=== PATIENT | male | born 1975 | race Caucasian/White ===

== ENCOUNTER 2016-06-13 08:49 | Emergency (ER) | payer OTHER ==
[2016-06-13] MEDS ORDERED: ALBUTEROL 90 MCG/ACT 8GM HFA INHALER As Ordered ONE (09:56)
--- NOTE | 2016-06-13 10:40 | EDDOCDS ---
Physician Documentation [facility] Name: Angeli Dickey Age: 40 yrs Sex: Male : 1975 Arrival Date: 06/13/2016 Time: 08:49 Bed PR Private MD: Disposition: 06/13/16 10:31 Discharged to Home/Self Care. Impression: Acute upper respiratory infection, unspecified, Emphysema, unspecified. - Condition is Stable. - Discharge Instructions: Chronic Obstructive Pulmonary Disease, Upper Respiratory Infection, Adult. - Prescriptions for Ibuprofen 600 mg Oral Tablet - take 1 tablet by ORAL route every 6 hours As needed take with food; 30 tablet. Doxycycline Monohydrate 100 mg Oral Tablet - take 1 tablet by ORAL route every 12 hours for 10 days; 20 tablet. benzonatate 200 mg Oral Capsule - take 1 capsule by ORAL route 3 times per day As needed; 30 capsule. Advair Diskus 250- 50 mcg/dose - inhale 1 blisters by INHALATION route 2 times per day; 1 unit. Fluticasone 50 mcg/actuation Nasal [place], Suspension - inhale 2 spray by INTRANASAL route once daily; 1 bottle. - Medication Reconciliation, Local Pharmacy Hours form. - [facility]; When: Call to arrange an appointment; Reason: Recheck today's complaints, To establish care. Follow up: Emergency Department; When: As needed; Reason: Fever > 102F, Trouble breathing, Worsening of conditions. - Problem is new. - Symptoms have improved. Historical: - Allergies: PENICILLINS (Hives); - Home Meds: 1. benzonatate 100 mg oral cap 1 cap 3 times per day - PMHx: Emphysema; Sleep Apnea w/o CPAP; - PSHx: ankle right ORIF; - Social history: Smoking status: Patient uses tobacco products, light tobacco smoker. No barriers to communication noted, The patient speaks fluent Divehi, Speaks appropriately for age. - Family history: Not pertinent. - : The pt / caregiver states he / she is not on anticoagulants. Home medication list is obtained from the patient. - Exposure Risk Screening:: None identified. Vital Signs: 06/13 09:11 BP 151 / 82; Pulse 84; Resp 16; Temp 99.1(TE); Pulse Ox 94% on R/A; Weight 117.93 kg / mlb1 259.99 lbs (R); Height 5 ft. 11 in. (180.34 cm) (R); Pain 9/10; 09:11 Body Mass Index 36.26 (117.93 kg, 180.34 cm) mlb1 MDM: 09:24 Financial registration complete. lg 09:36 Ventolin Inhaler 2 puffs Inhalation once ordered. ar2 09:36 Strep Screen, Nursing ordered. ar2 09:36 Obtain sample by nasopharyngeal swab ordered. ar2 09:36 -Influenza A&B Rapid Antigen - Nose Ordered. EDMS 09:56 GATS (NEGATIVE STREP SCREEN) Ordered. EDMS 10:21 -Influenza A&B Rapid Antigen - Nose Reviewed. ar2 10:28 [facility] Payment Agreement was scanned into [employer] and attached to record. lg Administered Medications: 10:04 Drug: Ventolin 2 puffs [Ventolin HFA 90 mcg/actuation aerosol inhaler (2 puffs)] Route: mlb1 Inhalation; Signatures: Dispatcher [employer] EDMS Joni Chaudhari, Reg Reg lg García Hui RN RN mlb1 Alexis Seals, ROSA PA-C ar2 The chart was reviewed and I authenticate all verbal orders and agree with the evaluation and treatment provided.Attachments: 10:28 [facility] Payment Agreement lg MTDD
--- NOTE | 2016-06-13 10:40 | EDDOCDS ---
Nurse's Notes [facility] Name: Angeli Dickey Age: 40 yrs Sex: Male : 1975 Arrival Date: 06/13/2016 Time: 08:49 Bed PR Private MD: Diagnosis: Acute upper respiratory infection, unspecified;Emphysema, unspecified Presentation: 06/13 09:09 Presenting complaint: Patient states: Headache body aches and cough began last night. mlb1 Adult Sepsis Screening: The patient does not have new or worsening altered mentation. Patient's respiratory rate is less than 22. Systolic blood pressure is greater than 100. Patient has a qSOFA score of 0- Negative Sepsis Screen. Suicide/Homicide risk assessment- the patient denies having any suicidal and/or homicidal ideations and does not present with any other emotional, behavioral or mental health complaints. Status: Patient is not a client services analyst or dependent. Transition of care: patient was not received from another setting of care. 09:09 Acuity: EMMY Level 4 mlb1 09:09 Method Of Arrival: Walkin/Carried/Asstd mlb1 Triage Assessment: 09:10 General: Appears in no apparent distress, Behavior is appropriate for age, cooperative. mlb1 Pain: Location: "all over" Pain currently is 9 out of 10 on a pain scale. HIV screening NA for this visit Offered previously. Respiratory: Reports cough that is productive. Historical: - Allergies: PENICILLINS (Hives); - Home Meds: 1. benzonatate 100 mg oral cap 1 cap 3 times per day - PMHx: Emphysema; Sleep Apnea w/o CPAP; - PSHx: ankle right ORIF; - Social history: Smoking status: Patient uses tobacco products, light tobacco smoker. No barriers to communication noted, The patient speaks fluent Czech, Speaks appropriately for age. - Family history: Not pertinent. - : The pt / caregiver states he / she is not on anticoagulants. Home medication list is obtained from the patient. - Exposure Risk Screening:: None identified. Screenin:37 Screening information is obtained from the patient. Fall risk: No risks identified. mlb1 Assistance ADL's: requires no assistance with activities of daily living. Abuse/DV Screen: The patient / caregiver reports he/she is: not in a situation that causes fear, pain or injury. Nutritional screening: No deficits noted. Advance Directives: Currently, there is no health care proxy. home support is adequate. Assessment: 10:37 General: Appears in no apparent distress, comfortable, Behavior is appropriate for age, mlb1 cooperative. Pain: Location: "all over" Pain currently is 5 out of 10 on a pain scale. Neurological: No deficits noted. Respiratory: Airway is patent Respiratory effort is even, unlabored, Breath sounds are clear bilaterally. Reports cough that is productive. Derm: Skin is pink, warm & dry. normal. Vital Signs: 09:11 BP 151 / 82; Pulse 84; Resp 16; Temp 99.1(TE); Pulse Ox 94% on R/A; Weight 117.93 kg mlb1 (R); Height 5 ft. 11 in. (180.34 cm) (R); Pain 9/10; 09:11 Body Mass Index 36.26 (117.93 kg, 180.34 cm) mlb1 Vitals: 09:11 Log In Time: June 13, 2016 at 08:48. mlb1 09:55 Strep Screen is obtained and tested: Negative, [facility]. ED Course: 08:50 Patient visited by Larisa Jacobs. mm15 08:50 Patient moved to Waiting mm15 09:08 Patient visited by García Hui RN. mlb1 09:09 Triage Initiated mlb1 09:11 Patient visited by García Hui RN. mlb1 09:11 Patient moved to Triage 1 mlb1 09:15 Alexis Seals [facility]-C [facility]. ar2 09:16 Elijah Price MD is Attending Physician. ar2 09:16 Patient visited by Alexis Seals PA-C. ar2 09:41 Patient moved to PR2 / mlb1 09:54 -Influenza A&B Rapid Antigen - Nose Sent. mlb1 10:17 Patient visited by Shari Lang PCA. ct3 10:28 [facility] [place] Agreement was scanned into [employer] and attached to record. lg 10:29 [facility] is Referral Physician. ar2 10:38 No IV's were initiated during this patient's visit. No procedures done that require mlb1 assistance. 10:39 The patient / caregiver is instructed regarding the plan of care and ED course. mlb1 Administered Medications: 10:04 Drug: Ventolin 2 puffs [Ventolin HFA 90 mcg/actuation aerosol inhaler (2 puffs)] Route: mlb1 Inhalation; Order Results: Lab Order: -Influenza A&B Rapid Antigen - Nose; SPEC'M 06/13/16 09:47 Test: INFLUENZA A RAPID SCR by ICA; Value: INFLUENZA A RESULTS NEGATIVE; Status: F Test: INFLUENZA A RAPID SCR by ICA; Value: Comments:; Status: F Test: INFLUENZA B RAPID SCR by ICA; Value: INFLUENZA B RESULTS NEGATIVE; Status: F Test Note: ; The Influenza test is a direct rapid immunoassay for the qualitative detection of Influenza viral antigen. Cell culture (Viral Culture) testing should be considered to confirm NEGATIVE results and to assist in detecting other viruses that can provide similar clinical symptoms. Please contact the lab within 24 hours ([phone]) if confirmatory testing is desired. Outcome: 10:31 Discharge ordered by Provider. ar2 10:38 Discharge Assessment: Patient awake, alert and oriented x 3. No cognitive and/or mlb1 functional deficits noted. Patient verbalized understanding of disposition instructions. patient administered narcotics - no. The following High Risk Discharge criteria are identified: None. Condition: good. Discharge instructions given to patient, Instructed on discharge instructions, follow up and referral plans. medication usage, Demonstrated understanding of instructions, medications, Pt was receptive of discharge instructions/ teaching. Prescriptions given X 5. No special radiology studies were completed. Property sent home with patient. 10:39 Patient left the ED. mlb1 Signatures: Joni Chaudhari, Trent Newman lg García Hui RN RN mlb1 Alexis Seals PA-C PA-C ar2 Shari Lang, NIMA ASSOCIATE CHEMIST ct3 Larisa Jacobs mm15 MTDD
--- NOTE | 2016-06-15 11:39 | EDDOCDS ---
Physician Documentation [facility] Name: Angeli Dickey Age: 40 yrs Sex: Male : 1975 Arrival Date: 06/13/2016 Time: 08:49 Bed PR Private MD: Disposition: 06/13/16 10:31 Discharged to Home/Self Care. Impression: Acute upper respiratory infection, unspecified, Emphysema, unspecified. - Condition is Stable. - Discharge Instructions: Chronic Obstructive Pulmonary Disease, Upper Respiratory Infection, Adult. - Prescriptions for Ibuprofen 600 mg Oral Tablet - take 1 tablet by ORAL route every 6 hours As needed take with food; 30 tablet. Doxycycline Monohydrate 100 mg Oral Tablet - take 1 tablet by ORAL route every 12 hours for 10 days; 20 tablet. benzonatate 200 mg Oral Capsule - take 1 capsule by ORAL route 3 times per day As needed; 30 capsule. Advair Diskus 250- 50 mcg/dose - inhale 1 blisters by INHALATION route 2 times per day; 1 unit. Fluticasone 50 mcg/actuation Nasal [place], Suspension - inhale 2 spray by INTRANASAL route once daily; 1 bottle. - Medication Reconciliation, Local Pharmacy Hours form. - Follow up: [facility]; When: Call to arrange an appointment; Reason: Recheck today's complaints, To establish care. Follow up: Emergency Department; When: As needed; Reason: Fever > 102F, Trouble breathing, Worsening of conditions. - Problem is new. - Symptoms have improved. Historical: - Allergies: PENICILLINS (Hives); - Home Meds: 1. benzonatate 100 mg oral cap 1 cap 3 times per day - PMHx: Emphysema; Sleep Apnea w/o CPAP; - PSHx: ankle right ORIF; - Social history: Smoking status: Patient uses tobacco products, light tobacco smoker. No barriers to communication noted, The patient speaks fluent Greek, Speaks appropriately for age. - Family history: Not pertinent. - : The pt / caregiver states he / she is not on anticoagulants. Home medication list is obtained from the patient. - Exposure Risk Screening:: None identified. Vital Signs: 06/13 09:11 BP 151 / 82; Pulse 84; Resp 16; Temp 99.1(TE); Pulse Ox 94% on R/A; Weight 117.93 kg / mlb1 259.99 lbs (R); Height 5 ft. 11 in. (180.34 cm) (R); Pain 01/13; 09:11 Body Mass Index 36.26 (117.93 kg, 180.34 cm) mlb1 MDM: 09:24 Financial registration complete. lg 09:36 Ventolin Inhaler 2 puffs Inhalation once ordered. ar2 09:36 Strep Screen, Nursing ordered. ar2 09:36 Obtain sample by nasopharyngeal swab ordered. ar2 09:36 -Influenza A&B Rapid Antigen - Nose Ordered. EDMS 09:56 GATS (NEGATIVE STREP SCREEN) Ordered. EDMS 10:21 -Influenza A&B Rapid Antigen - Nose Reviewed. ar2 10:28 [facility] Payment Agreement was scanned into [employer] and attached to record. lg 06/14 11:13 T-Sheet-- Draft Copy was scanned into [employer] and attached to record. gb Administered Medications: 06/13 10:04 Drug: Ventolin 2 puffs [Ventolin HFA 90 mcg/actuation aerosol inhaler (2 puffs)] Route: mlb1 Inhalation; Signatures: Dispatcher [employer] EDDE Sofya Garcia, Reg Reg gb Joni Chaudhari, Reg Reg lg García Hui RN RN mlb1 Alexis Seals, ROSA PASilvia ar2 The chart was reviewed and I authenticate all verbal orders and agree with the evaluation and treatment provided.Attachments: 10:28 [facility] Payment Agreement 06/14 11:13 T-Sheet-- Draft Copy gb Chart Complete MTDD
--- NOTE | 2016-06-15 11:39 | EDDOCDS ---
Nurse's Notes [facility] Name: Angeli Dickey Age: 40 yrs Sex: Male : 1975 Arrival Date: 06/13/2016 Time: 08:49 Bed PR Private MD: Diagnosis: Acute upper respiratory infection, unspecified;Emphysema, unspecified Presentation: 06/13 09:09 Presenting complaint: Patient states: Headache body aches and cough began last night. mlb1 Adult Sepsis Screening: The patient does not have new or worsening altered mentation. Patient's respiratory rate is less than 22. Systolic blood pressure is greater than 100. Patient has a qSOFA score of 0- Negative Sepsis Screen. Suicide/Homicide risk assessment- the patient denies having any suicidal and/or homicidal ideations and does not present with any other emotional, behavioral or mental health complaints. 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 Transition of care: patient was not received from another setting of care. 09:09 Acuity: EMMY Level 4 mlb1 09:09 Method Of Arrival: Walkin/Carried/Asstd mlb1 Triage Assessment: 09:10 General: Appears in no apparent distress, Behavior is appropriate for age, cooperative. mlb1 Pain: Location: "all over" Pain currently is 9 out of 10 on a pain scale. HIV screening NA for this visit Offered previously. Respiratory: Reports cough that is productive. Historical: - Allergies: PENICILLINS (Hives); - Home Meds: 1. benzonatate 100 mg oral cap 1 cap 3 times per day - PMHx: Emphysema; Sleep Apnea w/o CPAP; - PSHx: ankle right ORIF; - Social history: Smoking status: Patient uses tobacco products, light tobacco smoker. No barriers to communication noted, The patient speaks fluent Korean, Speaks appropriately for age. - Family history: Not pertinent. - : The pt / caregiver states he / she is not on anticoagulants. Home medication list is obtained from the patient. - Exposure Risk Screening:: None identified. Screenin:37 Screening information is obtained from the patient. Fall risk: No risks identified. mlb1 Assistance ADL's: requires no assistance with activities of daily living. Abuse/DV Screen: The patient / caregiver reports he/she is: not in a situation that causes fear, pain or injury. Nutritional screening: No deficits noted. Advance Directives: Currently, there is no health care proxy. home support is adequate. Assessment: 10:37 General: Appears in no apparent distress, comfortable, Behavior is appropriate for age, mlb1 cooperative. Pain: Location: "all over" Pain currently is 5 out of 10 on a pain scale. Neurological: No deficits noted. Respiratory: Airway is patent Respiratory effort is even, unlabored, Breath sounds are clear bilaterally. Reports cough that is productive. Derm: Skin is pink, warm & dry. normal. Vital Signs: 09:11 BP 151 / 82; Pulse 84; Resp 16; Temp 99.1(TE); Pulse Ox 94% on R/A; Weight 117.93 kg mlb1 (R); Height 5 ft. 11 in. (180.34 cm) (R); Pain 9/10; 09:11 Body Mass Index 36.26 (117.93 kg, 180.34 cm) mlb1 Vitals: 09:11 Log In Time: June 13, 2016 at 08:48. mlb1 09:55 Strep Screen is obtained and tested: Negative, [facility]. ED Course: 08:50 Patient visited by Larisa Jacobs. mm15 08:50 Patient moved to Waiting mm15 09:08 Patient visited by García Hui RN. mlb1 09:09 Triage Initiated mlb1 09:11 Patient visited by García Hui RN. mlb1 09:11 Patient moved to Triage 1 mlb1 09:15 Alexis Seals PA-C is [facility]. ar2 09:16 Elijah Price MD is Attending Physician. ar2 09:16 Patient visited by Alexis Seals PA-C. ar2 09:41 Patient moved to PR2 / mlb1 09:54 -Influenza A&B Rapid Antigen - Nose Sent. mlb1 10:17 Patient visited by Shari Lang PCA. ct3 10:28 [facility] Payment Agreement was scanned into [employer] and attached to record. lg 10:29 [facility] is Referral Physician. ar2 10:38 No IV's were initiated during this patient's visit. No procedures done that require mlb1 assistance. 10:39 The patient / caregiver is instructed regarding the plan of care and ED course. mlb1 02/ 11:13 T-Sheet-- Draft Copy was scanned into [employer] and attached to record. gb Administered Medications: 06/13 10:04 Drug: Ventolin 2 puffs [Ventolin HFA 90 mcg/actuation aerosol inhaler (2 puffs)] Route: mlb1 Inhalation; Order Results: Lab Order: -Influenza A&B Rapid Antigen - Nose; SPEC'M 06/13/16 09:47 Test: INFLUENZA A RAPID SCR by ICA; Value: INFLUENZA A RESULTS NEGATIVE; Status: F Test: INFLUENZA A RAPID SCR by ICA; Value: Comments:; Status: F Test: INFLUENZA B RAPID SCR by ICA; Value: INFLUENZA B RESULTS NEGATIVE; Status: F Test Note: ; The Influenza test is a direct rapid immunoassay for the qualitative detection of Influenza viral antigen. Cell culture (Viral Culture) testing should be considered to confirm NEGATIVE results and to assist in detecting other viruses that can provide similar clinical symptoms. Please contact the lab within 24 hours ([phone]) if confirmatory testing is desired. Lab Order: GATS (NEGATIVE STREP SCREEN); SPEC'M 06/13/16 09:47 Test: GATS CULTURE (NEG STREP SCR); Value: GATS RESULT NEGATIVE FOR STREP PYOGENES (GROUP A); Status: F Test: GATS CULTURE (NEG STREP SCR); Value: <EXTERNAL COMMENT eCWMed> FULL REPORT IN LAB NOTES (eCW and Medent).; Status: F Outcome: 10:31 Discharge ordered by Provider. ar2 10:38 Discharge Assessment: Patient awake, alert and oriented x 3. No cognitive and/or mlb1 functional deficits noted. Patient verbalized understanding of disposition instructions. patient administered narcotics - no. The following High Risk Discharge criteria are identified: None. Condition: good. Discharge instructions given to patient, Instructed on discharge instructions, follow up and referral plans. medication usage, Demonstrated understanding of instructions, medications, Pt was receptive of discharge instructions/ teaching. Prescriptions given X 5. No special radiology studies were completed. Property sent home with patient. 10:39 Patient left the ED. mlb1 Signatures: Sofya Garcia, Reg Reg gb Joni Chaudhari, Reg Reg lg García Hui RN RN mlb1 Alexis Seals, PA-C PA-C ar2 Shari Lang, DAIRY GRAZER DAIRY GRAZER ct3 Jacobs, Marlynn mm15 Chart Complete MTDD
--- NOTE | 2016-06-15 11:39 | EDDOCDS ---
Physician Documentation [facility] Name: Angeli Dickey Age: 40 yrs Sex: Male : 1975 Arrival Date: 06/13/2016 Time: 08:49 Bed PR Private MD: Disposition: 06/13/16 10:31 Discharged to Home/Self Care. Impression: Acute upper respiratory infection, unspecified, Emphysema, unspecified. - Condition is Stable. - Discharge Instructions: Chronic Obstructive Pulmonary Disease, Upper Respiratory Infection, Adult. - Prescriptions for Ibuprofen 600 mg Oral Tablet - take 1 tablet by ORAL route every 6 hours As needed take with food; 30 tablet. Doxycycline Monohydrate 100 mg Oral Tablet - take 1 tablet by ORAL route every 12 hours for 10 days; 20 tablet. benzonatate 200 mg Oral Capsule - take 1 capsule by ORAL route 3 times per day As needed; 30 capsule. Advair Diskus 250- 50 mcg/dose - inhale 1 blisters by INHALATION route 2 times per day; 1 unit. Fluticasone 50 mcg/actuation Nasal [place], Suspension - inhale 2 spray by INTRANASAL route once daily; 1 bottle. - Medication Reconciliation, Local Pharmacy Hours form. - Follow up: [facility]; When: Call to arrange an appointment; Reason: Recheck today's complaints, To establish care. Follow up: Emergency Department; When: As needed; Reason: Fever > 102F, Trouble breathing, Worsening of conditions. - Problem is new. - Symptoms have improved. Historical: - Allergies: PENICILLINS (Hives); - Home Meds: 1. benzonatate 100 mg oral cap 1 cap 3 times per day - PMHx: Emphysema; Sleep Apnea w/o CPAP; - PSHx: ankle right ORIF; - Social history: Smoking status: Patient uses tobacco products, light tobacco smoker. No barriers to communication noted, The patient speaks fluent Albanian, Speaks appropriately for age. - Family history: Not pertinent. - : The pt / caregiver states he / she is not on anticoagulants. Home medication list is obtained from the patient. - Exposure Risk Screening:: None identified. Vital Signs: 06/13 09:11 BP 151 / 82; Pulse 84; Resp 16; Temp 99.1(TE); Pulse Ox 94% on R/A; Weight 117.93 kg / mlb1 259.99 lbs (R); Height 5 ft. 11 in. (180.34 cm) (R); Pain 01/13; 09:11 Body Mass Index 36.26 (117.93 kg, 180.34 cm) mlb1 MDM: 09:24 Financial registration complete. lg 09:36 Ventolin Inhaler 2 puffs Inhalation once ordered. ar2 09:36 Strep Screen, Nursing ordered. ar2 09:36 Obtain sample by nasopharyngeal swab ordered. ar2 09:36 -Influenza A&B Rapid Antigen - Nose Ordered. EDMS 09:56 GATS (NEGATIVE STREP SCREEN) Ordered. EDMS 10:21 -Influenza A&B Rapid Antigen - Nose Reviewed. ar2 10:28 [facility] Payment Agreement was scanned into [employer] and attached to record. lg 06/14 11:13 T-Sheet-- Draft Copy was scanned into [employer] and attached to record. gb Administered Medications: 06/13 10:04 Drug: Ventolin 2 puffs [Ventolin HFA 90 mcg/actuation aerosol inhaler (2 puffs)] Route: mlb1 Inhalation; Signatures: Dispatcher [employer] EDAZ Sofya Garcia, Reg Reg gb Joni Chaudhari, Reg Reg lg García Hui RN RN mlb1 Alexis Seals, ROSA PASilvia ar2 The chart was reviewed and I authenticate all verbal orders and agree with the evaluation and treatment provided.Attachments: 10:28 [facility] Payment Agreement 06/14 11:13 T-Sheet-- Draft Copy gb Chart Complete MTDD
== END 2016-06-13 10:39 | disposition home or self-care (01) ==
LOC: M ED 08:49
DX: J44.9 Chronic obstructive pulmonary disease, unspecified (principal); J06.9 Acute upper respiratory infection, unspecified; G47.30 Sleep apnea, unspecified; Z79.899 Other long term (current) drug therapy; Z88.0 Allergy status to penicillin; F17.210 Nicotine dependence, cigarettes, uncomplicated

== ENCOUNTER 2016-07-27 01:04 | Emergency (ER) | payer OTHER ==
[~2016-07-27] VITALS: Ht 175.3 cm; Wt 115.7 kg
[2016-07-27 01:38] VITALS: BP 126/60
[2016-07-27] MEDS ORDERED: PERC5TAB6 PO (09:03)
== END 2016-07-27 05:42 | disposition left against medical advice (07) ==
LOC: M ED 03:28
DX: H57.9 Unspecified disorder of eye and adnexa (principal); Z53.29 Procedure and treatment not carried out because of patient's decision for other reasons

== ENCOUNTER 2016-07-27 05:43 | Emergency (ER) | payer OTHER ==
[~2016-07-27] VITALS: Ht 175.3 cm; Wt 115.7 kg
[2016-07-27] MEDS ORDERED: PROPARACAINE 0.5% OPHTH SOL 15ML OU ONE (06:15)
[2016-07-27] MEDS ORDERED: PERCOCET 5MG/325MG TAB PO ONE (09:00)
[2016-07-27] MEDS ORDERED: GATIFLOXACIN 0.5% 2.5ML OPHTH SOL OU ONE (09:00)
[2016-07-27] MEDS ORDERED: PERC5TAB6 PO (09:03)
[2016-07-27 09:11] VITALS: BP 136/70
== END 2016-07-27 09:12 | disposition home or self-care (01) ==
LOC: EDBD 05:43 → M ED 06:19
DX: T15.01XA Foreign body in cornea, right eye, initial encounter (principal); T15.02XA Foreign body in cornea, left eye, initial encounter; Y92.89 Other specified places as the place of occurrence of the external cause; Z88.0 Allergy status to penicillin

== ENCOUNTER 2017-07-10 22:43 | Emergency (ER) | payer OTHER, SELFPAY | END 2017-07-11 01:16 | disposition left against medical advice (07) | LOC: M ED 22:43 | DX: M54.9 Dorsalgia, unspecified (principal); Z53.21 Procedure and treatment not carried out due to patient leaving prior to being seen by health care provider ==

== ENCOUNTER 2017-09-05 02:52 | Emergency (ER) | payer OTHER ==
[2017-09-05] MEDS: PERCOCET 5MG/325MG TAB PO (06:13)
== END 2017-09-05 06:24 | disposition home or self-care (01) ==
LOC: M ED 02:52
DX: M25.511 Pain in right shoulder (principal); M25.512 Pain in left shoulder; G89.29 Other chronic pain; K21.9 Gastro-esophageal reflux disease without esophagitis; F33.9 Major depressive disorder, recurrent, unspecified; Z98.890 Other specified postprocedural states; Z88.0 Allergy status to penicillin; Z79.899 Other long term (current) drug therapy
CPT/HCPCS: 99283

== ENCOUNTER 2017-09-10 11:40 | Outpatient (RCR) | payer OTHER | END 2017-10-03 | LOC: M PT 11:40 | DX: Z47.89 Encounter for other orthopedic aftercare (principal); S43.002D Unspecified subluxation of left shoulder joint, subsequent encounter | CPT/HCPCS: 97010 ==

== ENCOUNTER 2017-09-14 22:48 | Emergency (ER) | payer OTHER ==
[2017-09-15] MEDS: diazePAM 5 MG TAB PO (01:26)
[2017-09-15] MEDS: PERCOCET 5MG/325MG TAB PO (01:26)
[2017-09-15] MEDS: OXYCODONE/APAP 5MG/325MG(BULK FOR ED) 1 TABLET PO (02:12)
== END 2017-09-15 02:18 | disposition home or self-care (01) ==
LOC: M ED 22:48
DX: M25.512 Pain in left shoulder (principal); J44.9 Chronic obstructive pulmonary disease, unspecified; K21.9 Gastro-esophageal reflux disease without esophagitis; F17.200 Nicotine dependence, unspecified, uncomplicated; Z79.899 Other long term (current) drug therapy; Z88.0 Allergy status to penicillin
CPT/HCPCS: 99283

== ENCOUNTER 2017-10-30 10:35 | Day surgery (SDC) | payer OTHER ==
[2017-10-30] MEDS ORDERED: ROPIvacaine 0.5% 30 ML INJECTION (J2795 PER 1MG) (10:36)
[2017-10-30] MEDS ORDERED: dexameTHASONE 10 MG/1 ML VIAL PRES.FREE (J1100) (10:36)
[2017-10-30] MEDS ORDERED: EPINEPHrine INJ 1 MG/ML 1ML AMP (10:36)
[2017-10-30] MEDS: LR 1,000 ML IV (11:00)
[2017-10-30] MEDS ORDERED: LIDOCAINE 1% MDV 20ML VIAL SQ (11:00)
[2017-10-30] MEDS ORDERED: LIDOCAINE 1% SDV INJ 30 ML VIAL As Ordered (11:43)
[2017-10-30] MEDS ORDERED: MIDAZOLAM INJ 2 MG/2 ML VIAL (J2250) As Ordered ×2 (11:59→13:15)
[2017-10-30] MEDS ORDERED: fentaNYL 100 MCG/2 ML INJECTION (J3010) As Ordered (11:59)
[2017-10-30] MEDS: MIDAZOLAM INJ 2 MG/2 ML VIAL (J2250) IV (12:23)
[2017-10-30] MEDS: fentaNYL 100 MCG/2 ML INJECTION (J3010) IV ×3 (12:23→16:15)
[2017-10-30] MEDS: VANCOMYCIN HCL 1,000 MG, VIAL MATE ADAPTER 1 EACH in D5W 250 ML IV (12:30)
[2017-10-30] MEDS ORDERED: ROCURONIUM BROMIDE 50 MG/5 ML VIAL As Ordered (13:15)
[2017-10-30] MEDS ORDERED: fentaNYL 250 MCG/5 ML INJECTION (J3010) As Ordered (13:15)
[2017-10-30] MEDS ORDERED: dexameTHASONE 4 MG/ML 1ML VIAL (J1100) As Ordered (13:15)
[2017-10-30] MEDS ORDERED: PROPOFOL 200 MG/20 ML VIAL As Ordered (13:15)
[2017-10-30] MEDS ORDERED: LIDOCAINE 2% INJ 100 MG/5 ML SDV (FOR ANES.) As Ordered (13:15)
[2017-10-30] MEDS ORDERED: ONDANSETRON 4MG/2ML VIAL (J2405) As Ordered ×2 (13:15→17:14)
[2017-10-30] MEDS ORDERED: NEOSTIGMINE 10 MG/10 ML VIAL (J2710) As Ordered (13:26)
[2017-10-30] MEDS ORDERED: GLYCOPYRROLATE INJ 0.2 MG/ML 2 ML VIAL As Ordered ×2 (13:26)
[2017-10-30] MEDS: EPINEPHrine 1MG/ML INJ 30ML MD-VIAL As Ordered (13:29)
[2017-10-30] MEDS ORDERED: fentaNYL 100 MCG/2 ML INJECTION (J3010) IV (16:00)
[2017-10-30] MEDS ORDERED: LR 1,000 ML IV ×3 (16:00→17:30)
[2017-10-30] MEDS ORDERED: MORPHINE 10 MG/ML 1ML VIAL (J2270) IV (16:00)
[2017-10-30] MEDS ORDERED: ONDANSETRON 4MG/2ML VIAL (J2405) IV (16:00)
[2017-10-30] MEDS: LEVALBUTEROL 1.25 MG/0.5 ML CONCENTRATE NEB NEB (16:10)
[2017-10-30] MEDS ORDERED: LEVALBUTEROL 1.25 MG/0.5 ML CONCENTRATE NEB As Ordered (16:13)
[2017-10-30] MEDS ORDERED: MORPHINE 4 MG/ML 1ML VIAL/SYRINGE (J2270) As Ordered (17:14)
[2017-10-30] MEDS ORDERED: PERCOCET 5MG/325MG TAB As Ordered (17:15)
[2017-10-30] MEDS: ONDANSETRON 4MG/2ML VIAL (J2405) IV (17:20)
[2017-10-30] MEDS: MORPHINE 10 MG/ML 1ML VIAL (J2270) IV ×4 (17:24→17:49)
[2017-10-30] MEDS: PERCOCET 5MG/325MG TAB PO ×2 (17:25→17:55)
[2017-10-30] MEDS ORDERED: PROMETHAZINE INJ 25 MG/ML VIAL (J2550) As Ordered (18:39)
[2017-10-30] MEDS ORDERED: KETOROLAC 30 MG/ML VIAL (J1885) As Ordered (18:39)
[2017-10-30] MEDS: KETOROLAC 30 MG/ML VIAL (J1885) IV (18:45)
[2017-10-30] MEDS: PROMETHAZINE INJ 25 MG/ML VIAL (J2550) IV (18:46)
== END 2017-10-30 20:30 | disposition home or self-care (01) ==
LOC: M SDC 10:35
DX: S43.432A Superior glenoid labrum lesion of left shoulder, initial encounter (principal); M75.102 Unspecified rotator cuff tear or rupture of left shoulder, not specified as traumatic; M24.812 Other specific joint derangements of left shoulder, not elsewhere classified; Z87.891 Personal history of nicotine dependence; K21.9 Gastro-esophageal reflux disease without esophagitis; J44.9 Chronic obstructive pulmonary disease, unspecified; F32.9 Major depressive disorder, single episode, unspecified; Z79.899 Other long term (current) drug therapy
CPT/HCPCS: 29806

== ENCOUNTER 2018-01-21 13:36 | Day surgery (SDC) | payer OTHER ==
[2018-01-21] MEDS ORDERED: EPINEPHrine INJ 1 MG/ML 1ML AMP ×2 (13:37)
[2018-01-21] MEDS ORDERED: ROPIvacaine 0.5% 30 ML INJECTION (J2795 PER 1MG) ×2 (13:37)
[2018-01-21] MEDS ORDERED: dexameTHASONE 10 MG/1 ML VIAL PRES.FREE (J1100) ×2 (13:37)
[2018-01-21] MEDS: VANCOMYCIN HCL 1,000 MG, VIAL MATE ADAPTER 1 EACH in D5W 250 ML IV ×2 (14:35)
[2018-01-21] MEDS: LR 1,000 ML IV ×2 (14:35)
[2018-01-21] MEDS ORDERED: MIDAZOLAM INJ 2 MG/2 ML VIAL (J2250) As Ordered ×4 (15:27→18:04)
[2018-01-21] MEDS ORDERED: fentaNYL 100 MCG/2 ML INJECTION (J3010) As Ordered ×2 (15:27)
[2018-01-21] MEDS ORDERED: LIDOCAINE 1% MDV 20ML VIAL As Ordered ×2 (15:31)
[2018-01-21] MEDS: MIDAZOLAM INJ 2 MG/2 ML VIAL (J2250) IV ×2 (16:00)
[2018-01-21] MEDS: fentaNYL 100 MCG/2 ML INJECTION (J3010) IV ×2 (16:00)
[2018-01-21] MEDS ORDERED: PROPOFOL 200 MG/20 ML VIAL As Ordered ×2 (18:04)
[2018-01-21] MEDS ORDERED: dexameTHASONE 4 MG/ML 1ML VIAL (J1100) As Ordered ×2 (18:04)
[2018-01-21] MEDS ORDERED: LIDOCAINE 2% INJ 100 MG/5 ML SDV (FOR ANES.) As Ordered ×2 (18:04)
[2018-01-21] MEDS ORDERED: ONDANSETRON 4MG/2ML VIAL (J2405) As Ordered ×2 (18:04)
[2018-01-21] MEDS ORDERED: ROCURONIUM BROMIDE 50 MG/5 ML VIAL As Ordered ×2 (18:04)
[2018-01-21] MEDS ORDERED: fentaNYL 250 MCG/5 ML INJECTION (J3010) As Ordered ×2 (18:04)
[2018-01-21] MEDS ORDERED: NEOSTIGMINE 10 MG/10 ML VIAL (J2710) As Ordered ×2 (18:25)
[2018-01-21] MEDS ORDERED: GLYCOPYRROLATE INJ 0.2 MG/ML 2 ML VIAL As Ordered ×2 (18:25)
[2018-01-21] MEDS ORDERED: KETOROLAC 60 MG/2 ML VIAL (J1885) As Ordered ×2 (18:27)
[2018-01-21] MEDS: EPINEPHrine INJ 1 MG/ML 1ML AMP As Ordered ×2 (18:43)
[2018-01-21] MEDS ORDERED: fentaNYL 100 MCG/2 ML INJECTION (J3010) IV ×2 (20:30)
[2018-01-21] MEDS ORDERED: LR 1,000 ML IV ×4 (20:30)
[2018-01-21] MEDS ORDERED: ONDANSETRON 4MG/2ML VIAL (J2405) IV ×2 (20:30)
[2018-01-21] MEDS ORDERED: NORCO, ANEXSIA 5/325MG TABLET (HYDROcodone/ACETAMINOPHEN) PO ×2 (20:30)
== END 2018-01-21 22:45 | disposition home or self-care (01) ==
LOC: M SDC 13:36
DX: S43.491A Other sprain of right shoulder joint, initial encounter (principal); M71.311 Other bursal cyst, right shoulder; M75.41 Impingement syndrome of right shoulder; F32.9 Major depressive disorder, single episode, unspecified; J30.9 Allergic rhinitis, unspecified; R06.83 Snoring; G47.33 Obstructive sleep apnea (adult) (pediatric); Z88.0 Allergy status to penicillin; Z79.899 Other long term (current) drug therapy; Z87.891 Personal history of nicotine dependence; Z87.81 Personal history of (healed) traumatic fracture; X58.XXXA Exposure to other specified factors, initial encounter; Y93.89 Activity, other specified; Y92.89 Other specified places as the place of occurrence of the external cause; Y99.8 Other external cause status
CPT/HCPCS: 29806

== ENCOUNTER 2018-05-30 14:42 | Emergency (ER) | payer OTHER, SELFPAY ==
[~2018-05-30] VITALS: Ht 175.3 cm; Wt 113.6 kg
[~2018-05-30 14:42] MED LIST: ALEV220C2 PO; EFFE37.5 PO; GABA-843 PO; IBUP-1022 PO; IBUP80TA PO; NORCOTAB PO; OMEP40CA2 PO; PERC5TAB12 PO; PRAZ1CAP PO; PROAAER10 INH; ROBA500T PO; SERT-138 PO; TRAM50TA2; TRAM50TA2 PO; VALI5TAB PO; ZOLO50TA PO
[2018-05-30 14:43] VITALS: BP 130/84
[2018-05-30] MEDS ORDERED: ULTR50TA8 PO (15:55)
== END 2018-05-30 16:01 | disposition home or self-care (01) ==
LOC: M ED 14:42
DX: G89.18 Other acute postprocedural pain (principal); M25.511 Pain in right shoulder; M25.512 Pain in left shoulder; Z88.0 Allergy status to penicillin; Z79.899 Other long term (current) drug therapy

== ENCOUNTER 2018-07-17 16:24 | Emergency (ER) | payer OTHER ==
[~2018-07-17] VITALS: Ht 175.3 cm; Wt 117.2 kg
[~2018-07-17 16:24] MED LIST changes: +ULTR50TA8 PO
[2018-07-17] MEDS ORDERED: traMADol 50 MG TAB PO ONE (20:15)
--- NOTE | 2018-07-17 20:31 | REPVR ---
EXAM: US Duplex Left Lower Extremity Veins, Limited EXAM DATE/TIME: 07/17/2018 7:34 PM CLINICAL HISTORY: 42 years old, male; Pain; Leg, lower; Left; Additional info: Pain/edema TECHNIQUE: Real-time Duplex ultrasound of the Left Lower Extremity with 2-D bronson scale, color Doppler flow and spectral waveform analysis. Limited exam focused on the left lower extremity veins. COMPARISON: No relevant prior studies available. FINDINGS: Left deep veins: Unremarkable. The common femoral, femoral, proximal profunda femoral and popliteal veins are patent without thrombus. Normal Doppler waveforms. Normal compressibility and/or augmentation response. Left superficial veins: Unremarkable. Saphenofemoral junction is patent without thrombus. Soft tissues: Unremarkable. IMPRESSION: No acute findings. No evidence of deep vein thrombosis. Electronically signed by: Deondre Mclean On 07/17/2018 20:31:04 PM
[2018-07-17] MEDS ORDERED: TRAM50TA2 PO (20:37)
[2018-07-17 20:49] VITALS: BP 134/72
== END 2018-07-17 20:52 | disposition home or self-care (01) ==
LOC: M ED 16:24
DX: M25.562 Pain in left knee (principal); G89.29 Other chronic pain; J44.9 Chronic obstructive pulmonary disease, unspecified; Z88.0 Allergy status to penicillin; Z79.899 Other long term (current) drug therapy

== ENCOUNTER 2018-08-12 01:27 | Emergency (ER) | payer OTHER ==
[~2018-08-12] VITALS: Ht 175.3 cm; Wt 115.9 kg
[~2018-08-12 01:27] MED LIST changes: +HYDR-3715 PO; -NORCOTAB PO
[2018-08-12 01:30] VITALS: BP 119/59
[2018-08-12] MEDS ORDERED: predniSONE 20 MG TAB PO ONE (02:30)
[2018-08-12] MEDS ORDERED: ALBUTEROL 90 MCG/ACT 8GM HFA INHALER INH ONE (02:30)
[2018-08-12] MEDS ORDERED: AZITHROMYCIN 250 MG TAB PO ONE (02:30)
[2018-08-12] MEDS ORDERED: ACETAMINOPHEN TAB 650MG DOSE (2X325MG) PO ONE (02:30)
[2018-08-12 02:42] LABS: INFLUENZA A AMPLIFICATION NEGATIVE (NEGATIVE); INFLUENZA B AMPLIFICATION NEGATIVE (NEGATIVE)
[2018-08-12] MEDS ORDERED: IBUPROFEN 600 MG TAB PO ONE (02:45)
[2018-08-12] MEDS ORDERED: AZIT-12 PO (02:59)
[2018-08-12] MEDS ORDERED: PRED20TA PO (03:00)
--- NOTE | 2018-08-12 10:54 | REP ---
Clinical: Cough . Comparison: 06/25/2015 . Technique: PA and lateral. Findings: The mediastinum and cardiac silhouette are normal. The lung tomlinson are clear and without acute consolidation, effusion, or pneumothorax. The skeletal structures are intact and normal. Impression: 1. No acute cardiopulmonary process. Electronically Signed by Ahmet Lomeli MD 08/12/2018 10:45 A
== END 2018-08-12 03:14 | disposition home or self-care (01) ==
LOC: M ED 01:27
DX: J06.9 Acute upper respiratory infection, unspecified (principal); J44.9 Chronic obstructive pulmonary disease, unspecified; K21.9 Gastro-esophageal reflux disease without esophagitis; F43.10 Post-traumatic stress disorder, unspecified; Z88.0 Allergy status to penicillin; Z79.899 Other long term (current) drug therapy

== ENCOUNTER 2018-08-18 19:31 | Emergency (ER) | payer OTHER ==
[~2018-08-18] VITALS: Ht 175.3 cm; Wt 115.9 kg
[~2018-08-18 19:31] MED LIST changes: +AZIT-12 PO; +PRED20TA PO
[2018-08-18] MEDS ORDERED: diazePAM 5 MG TAB PO ONE (22:00)
[2018-08-18] MEDS ORDERED: ONDANSETRON 4 MG ORAL DISINTEGRATING TAB (Q0162 PER 1MG) PO ONE (22:00)
[2018-08-18] MEDS ORDERED: methylPREDNISolone INJ 125 MG/2 ML VIAL (J2930) IM ONE (22:00)
[2018-08-18] MEDS ORDERED: VALI5TAB PO (22:50)
[2018-08-18] MEDS ORDERED: PRED20TA PO (22:50)
[2018-08-18 22:55] VITALS: BP 119/72
== END 2018-08-18 22:56 | disposition home or self-care (01) ==
LOC: M ED 19:31
DX: S39.012A Strain of muscle, fascia and tendon of lower back, initial encounter (principal); W10.9XXA Fall (on) (from) unspecified stairs and steps, initial encounter; Y92.019 Unspecified place in single-family (private) house as the place of occurrence of the external cause
CPT/HCPCS: 96372; 99283; J2930; Q0162

== ENCOUNTER 2018-10-03 22:11 | Emergency (ER) | payer OTHER ==
[~2018-10-03] VITALS: Ht 175.3 cm; Wt 113.6 kg
[2018-10-03] MEDS ORDERED: KETOROLAC 60 MG/2 ML VIAL (J1885) IM ONE (23:00)
[2018-10-03] MEDS ORDERED: NORCO 5/325MG TABLET (BULK FOR ED) PO ONE (23:00)
[2018-10-03 23:31] VITALS: BP 121/83
--- NOTE | 2018-10-04 07:14 | REP ---
Clinical: Trauma. Technique: AP, lateral, bilateral oblique and sunrise views left knee . Findings: The osseous structures and joint spaces are intact and there is no evidence for acute fracture or dislocation. Fraying along the anterior contour of the patella suggests mild tendinopathy. No joint effusion is appreciated. Surrounding soft tissues are unremarkable. No subcutaneous emphysema or radiodense foreign body. Impression: No acute fracture or dislocation. Electronically Signed by Ahmet Lomeli MD 10/04/2018 07:05 A
== END 2018-10-03 23:34 | disposition home or self-care (01) ==
LOC: M ED 22:11
DX: G89.29 Other chronic pain (principal); M25.562 Pain in left knee; J44.9 Chronic obstructive pulmonary disease, unspecified; K21.9 Gastro-esophageal reflux disease without esophagitis; F33.9 Major depressive disorder, recurrent, unspecified; F43.10 Post-traumatic stress disorder, unspecified; Z79.899 Other long term (current) drug therapy; Z88.0 Allergy status to penicillin
CPT/HCPCS: 73564; 96372; 99284; J1885

== ENCOUNTER 2019-07-19 04:43 | Emergency (ER) | payer OTHER, SELFPAY ==
[~2019-07-19] VITALS: Ht 175.3 cm; Wt 108.3 kg
[~2019-07-19 04:43] MED LIST changes: -OMEP40CA2 PO; +OMEP40CA97 PO
[2019-07-19 06:49] LABS: BASO # 0.1 10^3/uL (0.0-0.2); BASO % 0.6 % (0.0-1.0); EOS # 0.3 10^3/uL (0.0-0.5); EOS % 3.3 % (0.0-3.0); HEMATOCRIT 42.6 % (42.0-52.0); HEMOGLOBIN 14.5 g/dl (13.5-17.5); LYMPH % 34.1 % (24.0-44.0); MEAN CORPUSCULAR HEMOGLOBIN 31.3 pg (27.0-33.0); MONO # 0.6 10^3/uL (0.0-0.8); MONO % 6.4 % (0.0-5.0); NEUTROPHILS # 4.8 10^3/uL (1.5-8.5); NEUTROPHILS % 55.4 % (36.0-66.0); PLATELET COUNT, AUTOMATED 261 10^3/uL (150-450); RED BLOOD COUNT 4.63 10^6/uL (4.30-6.10); WHITE BLOOD COUNT 8.7 10^3/uL (4.0-10.0)
[2019-07-19 06:49] LABS: INFLUENZA A AMPLIFICATION NEGATIVE (NEGATIVE); INFLUENZA B AMPLIFICATION NEGATIVE (NEGATIVE)
[2019-07-19] MEDS ORDERED: KETOROLAC 30 MG/ML VIAL (J1885) IM ONE (07:00)
[2019-07-19 08:20] VITALS: BP 132/85
[2019-07-19] MEDS ORDERED: AZIT-12 PO (08:24)
[2019-07-19] MEDS ORDERED: PROAAER10 INH (08:24)
--- NOTE | 2019-07-19 14:09 | REP ---
REASON: Cough. COMPARISON: 08/12/2018 TWO-VIEW CHEST: FINDINGS: The superior mediastinal structures are midline. The cardiac silhouette is unremarkable in size, shape, and position. The diaphragmatic surfaces of the lungs are regular, and the costophrenic angles are clear. The pulmonary tomlinson are clear. The imaged osseous structures are intact. IMPRESSION: There is no acute cardiopulmonary disease. Electronically Signed by Imsa Dominguez DO 07/19/2019 02:13 P
== END 2019-07-19 08:38 | disposition home or self-care (01) ==
LOC: M ED 04:43
DX: J44.1 Chronic obstructive pulmonary disease with (acute) exacerbation (principal); J06.9 Acute upper respiratory infection, unspecified; K21.9 Gastro-esophageal reflux disease without esophagitis; F43.10 Post-traumatic stress disorder, unspecified; G47.33 Obstructive sleep apnea (adult) (pediatric); Z88.0 Allergy status to penicillin; F17.210 Nicotine dependence, cigarettes, uncomplicated
CPT/HCPCS: 36415; 71046; 80047; 85025; 87486; 87502; 87581; 87633; 87798; 87880; 96372; 99284; J1885

== ENCOUNTER 2019-11-10 15:18 | Emergency (ER) | payer MEDICAID, OTHER, SELFPAY ==
[~2019-11-10] VITALS: Ht 175.3 cm; Wt 109.0 kg
[2019-11-10 15:18] VITALS: BP 123/71
[2019-11-10] MEDS ORDERED: IBUP80TA PO (15:43)
[2019-11-10] MEDS ORDERED: ROBA750T4 PO (15:43)
[2019-11-10] MEDS ORDERED: IBUPROFEN 800 MG TAB PO ONE (15:45)
[2019-11-10] MEDS ORDERED: methocarbamoL 750 MG TAB PO ONE (15:45)
== END 2019-11-10 15:52 | disposition home or self-care (01) ==
LOC: M ED 15:18
DX: S33.5XXA Sprain of ligaments of lumbar spine, initial encounter (principal); X50.1XXA Overexertion from prolonged static or awkward postures, initial encounter; Y92.9 Unspecified place or not applicable

== ENCOUNTER 2019-12-31 23:19 | Day surgery (SDC) | payer MEDICAID, OTHER ==
[~2019-12-31] VITALS: Ht 175.3 cm; Wt 113.0 kg
[~2019-12-31 23:19] MED LIST changes: +ROBA750T4 PO
[2019-12-31] MEDS ORDERED: NS 1,000 ML IV ONE (23:45)
[2020-01-01 00:13] LABS: BASO % 0.3 % (0.0-1.0); EOS # 0.1 10^3/uL (0.0-0.5); EOS % 0.5 % (0.0-3.0); HEMATOCRIT 43.5 % (42.0-52.0); HEMOGLOBIN 14.9 g/dl (13.5-17.5); LYMPH # 1.2 10^3/uL (1.5-5.0); LYMPH % 10.4 % (24.0-44.0); MEAN CORPUSCULAR HGB CONC 34.3 g/dl (32.0-36.5); MEAN CORPUSCULAR VOLUME 90.4 fl (80.0-96.0); MONO # 0.4 10^3/uL (0.0-0.8); MONO % 3.4 % (0.0-5.0); NEUTROPHILS % 84.6 % (36.0-66.0); PLATELET COUNT, AUTOMATED 262 10^3/uL (150-450); RED BLOOD COUNT 4.81 10^6/uL (4.30-6.10); WHITE BLOOD COUNT 11.8 10^3/uL (4.0-10.0)
[2020-01-01 00:20] LABS: ALBUMIN 4.3 GM/DL (3.2-5.2); ALT/SGPT 30 U/L (12-78); BILIRUBIN,DIRECT 0.2 MG/DL (0.0-0.2); BLOOD UREA NITROGEN 11 MG/DL (7-18); CARBON DIOXIDE LEVEL 30 MEQ/L (21-32); CHLORIDE LEVEL 105 MEQ/L (98-107); CREATININE FOR GFR 0.87 MG/DL (0.70-1.30); GLOMERULAR FILTRATION RATE > 60.0 (>60); GLUCOSE, FASTING 115 MG/DL (70-100); LIPASE 155 U/L (73-393); POTASSIUM SERUM 3.8 MEQ/L (3.5-5.1); SODIUM LEVEL 140 MEQ/L (136-145); TOTAL PROTEIN 7.7 GM/DL (6.4-8.2)
[2020-01-01 00:53] LABS: APPEARANCE, URINE CLOUDY (CLEAR); BACTERIA, URINE AUTO NEGATIVE (NEGATIVE); BILIRUBIN, URINE AUTO NEGATIVE (NEGATIVE); BLOOD, URINE BLOOD NEGATIVE (NEGATIVE); COLOR, URINE YELLOW (YELLOW); GLUCOSE, URINE (UA) AUTO NEGATIVE (NEGATIVE); KETONE, URINE AUTO 1+ mg/dL (NEGATIVE); LEUKOCYTE ESTERASE, URINE AUTO NEGATIVE (NEGATIVE); MUCUS, URINE SMALL (NEGATIVE); NITRITE, URINE AUTO NEGATIVE (NEGATIVE); PROTEIN, URINE AUTO 1+ mg/dL (NEGATIVE); RBC, URINE AUTO 2 /HPF (0-3); SQUAMOUS EPITHELIAL CELL UR AU 0 /HPF (0-6); UROBILINOGEN, URINE AUTO 0.2 mg/dL (0.0-2.0); WBC, URINE AUTO 2 /HPF (0-3)
[2020-01-01] MEDS ORDERED: ISOVUE-370 76% 100ML VIAL As Ordered ONE (00:55)
[2020-01-01] MEDS ORDERED: METOCLOPRAMIDE INJ 10MG/2ML VIAL (J2765 PER 1) IV ONE (01:00)
[2020-01-01] MEDS ORDERED: CIPROFLOXACIN 400 MG in IV 1 EA IV ONE (03:00)
[2020-01-01] MEDS ORDERED: metroNIDAZOLE 500 MG in IV 1 EA IV ONE (03:00)
[2020-01-01] MEDS ORDERED: MORPHINE 4 MG/ML 1ML VIAL/SYRINGE (J2270) IV ONE (03:45)
[2020-01-01] MEDS ORDERED: MORPHINE 2 MG/ML 1ML VIAL (J2270) IV PRN (07:45)
[2020-01-01] MEDS ORDERED: KETOROLAC 30 MG/ML 1ML VIAL IV PRN (07:45)
[2020-01-01] MEDS ORDERED: ONDANSETRON 4MG/2ML VIAL IV PRN ×2 (07:45→14:00)
[2020-01-01] MEDS ORDERED: MORPHINE 2 MG/ML 1ML VIAL (J2270) As Ordered ONE (08:01)
[2020-01-01] MEDS: LR 1,000 ML IV SCH ×3 (08:07→20:50)
[2020-01-01] MEDS ORDERED: dexameTHASONE 4 MG/ML 1ML VIAL (J1100 PER 1MG) As Ordered ONE ×2 (08:50→14:20)
[2020-01-01] MEDS ORDERED: propofoL 200 MG/20 ML VIAL As Ordered ONE ×2 (08:50→12:06)
[2020-01-01] MEDS ORDERED: ONDANSETRON 4MG/2ML VIAL As Ordered ONE (08:50)
[2020-01-01] MEDS ORDERED: ROCURONIUM BROMIDE 50 MG/5 ML VIAL As Ordered ONE (08:50)
[2020-01-01] MEDS ORDERED: LIDOCAINE 2% 100MG/5ML SDV (FOR ANES.) As Ordered ONE (08:50)
[2020-01-01] MEDS ORDERED: fentaNYL 250 MCG/5 ML INJECTION (J3010) As Ordered ONE (08:51)
[2020-01-01] MEDS ORDERED: MIDAZOLAM INJ 2MG/2ML VIAL (J2250 PER 1MG) As Ordered ONE (08:51)
[2020-01-01] MEDS ORDERED: metroNIDAZOLE/NACL 500MG(5MG/ML) 100ML BAG (S0030) As Ordered ONE (09:14)
[2020-01-01] MEDS: metroNIDAZOLE 500 MG in IV 1 EA IV SCH ×2 (09:17→16:10)
[2020-01-01] MEDS ORDERED: BUPIVACAINE HCL 0.25% 30ML VIAL As Ordered ONE (09:28)
[2020-01-01] MEDS ORDERED: METOPROLOL 5 MG/5 ML VIAL As Ordered ONE (11:52)
[2020-01-01] MEDS ORDERED: ACETAMINOPHEN 1000MG 100ML IV BTL (OFIRMEV) (J0131 PER 10MG) As Ordered ONE (12:06)
[2020-01-01] MEDS ORDERED: ALBUTEROL 6.7GM INHALER **FOR ANES. CART/OMNICELL ONLY As Ordered ONE (12:08)
[2020-01-01] MEDS ORDERED: SUGAMMADEX SODIUM 500 MG/5 ML VIAL (BRIDION) As Ordered ONE (12:11)
[2020-01-01] MEDS ORDERED: HYDROmorphone HCL 2 MG/ML 1ML VIAL (J1170) As Ordered ONE (12:25)
[2020-01-01] MEDS ORDERED: IBUPROFEN 600MG TAB PO PRN (13:15)
[2020-01-01] MEDS ORDERED: ACETAMINOPHEN TAB 650MG DOSE (2X325MG) PO PRN (13:15)
[2020-01-01] MEDS: NORCO, ANEXSIA 5/325MG TABLET (HYDROcodone/ACETAMINOPHEN) PO PRN ×3 (13:50→23:03)
[2020-01-01] MEDS ORDERED: LR 1,000 ML IV SCH (14:00)
[2020-01-01] MEDS ORDERED: fentaNYL 100 MCG/2 ML INJECTION (J3010) IV PRN (14:00)
[2020-01-01] MEDS ORDERED: PERCOCET 5MG/325MG TAB PO PRN (14:00)
[2020-01-01] MEDS ORDERED: METOCLOPRAMIDE INJ 10MG/2ML VIAL (J2765 PER 1) IV PRN (14:00)
[2020-01-01] MEDS ORDERED: KETOROLAC 60MG 2ML VIAL As Ordered ONE (14:20)
[2020-01-01 14:46] VITALS: BP 143/89
[2020-01-01 15:16] VITALS: BP 137/87
[2020-01-01] MEDS ORDERED: CIPROFLOXACIN 400 MG in IV 1 EA IV SCH (16:00)
[2020-01-01 16:15] VITALS: BP 133/83
[2020-01-01 17:15] VITALS: BP 131/73
[2020-01-01 18:15] VITALS: BP 145/83
[2020-01-01 20:00] VITALS: BP 106/67
[2020-01-02 01:39] VITALS: BP 105/62
[2020-01-02] MEDS: NORCO, ANEXSIA 5/325MG TABLET (HYDROcodone/ACETAMINOPHEN) PO PRN ×2 (05:13→09:21)
[2020-01-02 05:45] VITALS: BP 115/76
[2020-01-02] MEDS ORDERED: HYDR-3715 PO (08:50)
[2020-01-02] MEDS ORDERED: NORC1TAB7 PO (09:34)
--- NOTE | 2020-01-27 09:41 | RO ---
DATE OF OPERATION: 01/01/2020 PREOPERATIVE DIAGNOSIS: Acute appendicitis. POSTOPERATIVE DIAGNOSIS: Acute appendicitis. PROCEDURE: Laparoscopic appendectomy. SURGEON: Darryl Merrill MD ANESTHESIA: General INDICATION FOR THE PROCEDURE: The patient is a 44-year-old man who presented to the hospital with a roughly one day history of abdominal pain becoming localized to the right lower quadrant. His evaluation included a CT scan, which revealed findings consistent with acute appendicitis. He is now for a laparoscopic appendectomy. OPERATIVE PROCEDURE: The patient was brought to the operating room and placed on the table in a supine position. He was placed under general endotracheal anesthesia. The patients abdomen was prepped and draped in a sterile fashion. 25% Marcaine was infiltrated at each of trocar sites as needed. A short supraumbilical midline incision was made. This was deepened through the subcutaneous tissue. A Veress needle was inserted; and after a positive hanging drop test, the abdomen was inflated with carbon dioxide gas. The fascia was then partially incised along the midline and a 12 mm port was placed without difficulty. The laparoscope was inserted. Initial examination showed no evidence of diffuse peritonitis. The patient was tilted to a slight Trendelenburg position and rolled slightly to the left. Two 5 mm ports were placed in the left lower quadrant. Graspers were inserted. The cecum and terminal ileum were identified. As terminal ileum was elevated superiorly, the inflamed appendix was identified extending inferior to the terminal ileum. The appendix was grasped by the mesoappendix and elevated. Dissection was carried through the mesoappendix using primarily the hook cautery. When the vascular bundle was identified, this was thoroughly cauterized with [place] dissector and then divided. Dissection continued down to the base of the appendix. The appendix was stapled at its junction with the cecum using a 45 mm endoscopic linear cutter stapler. The appendix was placed in an Endopouch. The appendix had clearly been inflamed with some edema and exudate. The right lower quadrant was irrigated. Final inspection revealed no evidence of bleeding. The patient was returned to a flat position. The abdomen was deflated and the trocars were removed. The appendix was recovered through the supraumbilical site and sent for permanent pathology. The fascia at the supraumbilical site was closed with interrupted simple sutures of 2-0 Vicryl. The skin incisions were also closed with buried 4-0 Vicryl and Steri-Strips. Light dressings were applied. The patient tolerated the procedure well without apparent complication. He was awakened in the operating room, extubated and moved to the recovery room in stable condition. JOSE J
== END 2020-01-02 10:50 | disposition home or self-care (01) ==
LOC: M ED 23:19 → M SDC 01-01 07:39 → M MS5PR 01-01 14:40 → M SDC 01-02 10:50
PROVIDERS: ATTEND Surgery
DX: K35.890 Other acute appendicitis without perforation or gangrene (principal); J44.9 Chronic obstructive pulmonary disease, unspecified; G47.30 Sleep apnea, unspecified; K21.9 Gastro-esophageal reflux disease without esophagitis; F32.9 Major depressive disorder, single episode, unspecified
CPT/HCPCS: 44970; 80048; 80076; 81001; 83605; 83690; 85025; 88304; 96361; 96365; 96366; 96375; 99285; J0131; J0744; J1100; J1170; J2250; J2270; J2405; J2765; J3010; Q9967; U0002

== ENCOUNTER 2021-03-27 22:07 | Emergency (ER) | payer OTHER ==
[~2021-03-27] VITALS: Ht 175.3 cm; Wt 113.6 kg
[~2021-03-27 22:07] MED LIST changes: +GABA-282 PO; -GABA-843 PO; +NORC1TAB7 PO; +OMEP40CA4 PO; -OMEP40CA97 PO
[2021-03-27] MEDS ORDERED: OMEP-221 PO (22:13)
[2021-03-27] MEDS ORDERED: ZOLO50TA PO (22:13)
--- OUTSIDE RECORDS SUMMARY | 2021-03-27 22:18 | CCD ---
Author Author [facility] Organization [facility] Address Unknown Phone Unavailable Care Team Providers Care Lawn Caretaker Name Role Phone Luma Jimenez Unavailable PROBLEMS Type Condition ICD9-CM Code [id number] Code Onset Dates Condition S tatus W/U Status Risk SNOMED Code Notes Problem Obesity, Class II, BMI 35-39.9, isolated E66.9 Active confirmed 848281931 Problem BMI 39.0-39.9,adult Z68.39 Active confirmed 185067779839726 Problem Pulmonary emphysema, unspecified emphysema type J4 3.9 Active confirmed 42793563 Problem Obstructive sleep apnea syndrome G47.33 Active conf irmed 28936120 Problem Gastroesophageal reflux disease without esophagitis K21.9 Active confirmed 092862954 Problem Screening for thyroid disorder Z13.29 Active confir med 137763212 Problem Depressive disorder, not elsewhere classified F32. 9 Active confirmed 36780522 Problem Pain in right shoulder M25.511 Active confirmed 89254067 Problem Post-traumatic stress disorder, unspecified F43.10 Active confirmed 67581009 Problem Other specified depressive episodes F32.89 Acti ve confirmed 50893080 Problem Daytime somnolence R40.0 Active confirmed 1 97601783819 Problem Pain in left shoulder M25.512 Active confirmed 65330658 Problem Personal history of other endocrine, nut ritional and metabolic disease Z86.39 Active confirmed 995143484 Problem Encounter for general adult medical exam ination with abnormal findings Z00.01 Active confirmed 452310315 Problem Mental health disorder F99 Active confirmed 54857055 Problem Hyperlipidemia, unspecified hyperlipidemia type E7 8.5 Active confirmed 12904510 Problem Chronic obstructive pulmonary disease, unspecified COPD ty pe J44.9 Active confirmed 36921508 Problem Obesity (BMI 30-39.9) E66.9 Active confirmed 391786072 ALLERGIES Allergen (clinical drug ingredient) Drug/Non Drug Allergy do cumented on EMR Reaction Allergy Type Onset Date Status penicillin G Penicillin G Sodium([facility] Code:[address]-63) HIVES D rug Allergy Active ENCOUNTERS from 1974 to 2021-03-22 Encounter Location Date Provider Diagnosis [address] [address] Mar, Luma Jimenez Gastroesophageal reflux dise ase without esophagitis K21.9 IMMUNIZATIONS Vaccine Route Administration Date Status Fluarix IM Intramuscular Mar 03, 2021 Administered SOCIAL HISTORY Tobacco Use: Social History Observation Description Date Details (start date - stop date) Former Smoker Sex Assigned At : Social History Observation Description Sex Assigned At Unknown Tobacco Use/Smoking Question Answer Notes Are you a former smoker How long has it been since you last smoked? < 1 month REASON FOR REFERRAL No Information VITAL SIGNS No information MEDICATIONS Medication SIG (Take, Route, Frequency, Duration) Notes Start Da te End Date Status Pantoprazole Sodium 40 MG 1 tablet Orally Once a day for 30 day( s) Feb, Active Zoloft 50 MG 1 tablet Orally Once a day Feb, Active PROCEDURES No Information RESULTS No Results REASON FOR VISIT Esomeprazole denial MEDICAL (GENERAL) HISTORY Type Description Date Medical History MACK Medical History GERD Medical History Hyperlipidemia Medical History Obesity Medical History PTSD Medical History Depression Medical History Emphysema Surgical History Right ankle Surgical History Left shoulder replacement Surgical History Appendectomy Surgical History Right shoulder cyst drainage Hospitalization History Surgical needs Goals Section No Information Health Concerns No Information MEDICAL EQUIPMENT No Information MENTAL STATUS No Information FUNCTIONAL STATUS No Information ASSESSMENTS Encounter Date Diagnosis Assessment Notes Treatment Notes Treatm ent Clinical Notes Mar, Gastroesophageal reflux dise ase without esophagitis (ICD-10 - K21.9) PLAN OF TREATMENT Medication Medication Name Sig Start Date Stop Date Pantoprazole Sodium 40 MG 1 tablet Orally Once a day for 30 day( s) Feb, Zoloft 50 MG 1 tablet Orally Once a day Feb, Next Appt Details Provider Name:Luma Jimenez, 2020-12-0 1 10:40:00 AM, [address] [place] [address], [address], Insurance Providers Payer Name Payer Address Payer Phone Insured Name Patient Relati onship to Insured Coverage Start Date Coverage End Date [employer] M[employer] - [employer] MEDICAID [address] [facility] [id number] ROSA MARIA CROCKER self
--- OUTSIDE RECORDS SUMMARY | 2021-03-27 22:18 | CCD ---
Author Author [facility] Organization [facility] Address Unknown Phone Unavailable Care Team Providers Care Drywall Boardhanger Name Role Phone Luma Jimenez Unavailable PROBLEMS Type Condition ICD9-CM Code YRY98-PB Code Onset Dates Condition S tatus W/U Status Risk SNOMED Code Notes Problem Obesity, Class II, BMI 35-39.9, isolated E66.9 Active confirmed 452509784 Problem BMI 39.0-39.9,adult Z68.39 Active confirmed 473184422527126 Problem Pulmonary emphysema, unspecified emphysema type J4 3.9 Active confirmed 57346318 Problem Obstructive sleep apnea syndrome G47.33 Active conf irmed 55885986 Problem Gastroesophageal reflux disease without esophagitis K21.9 Active confirmed 167097932 Problem Screening for thyroid disorder Z13.29 Active confir med 165118536 Problem Depressive disorder, not elsewhere classified F32. 9 Active confirmed 14122222 Problem Pain in right shoulder M25.511 Active confirmed 81737380 Problem Post-traumatic stress disorder, unspecified F43.10 Active confirmed 22163483 Problem Other specified depressive episodes F32.89 Acti ve confirmed 79553232 Problem Daytime somnolence R40.0 Active confirmed 1 93698704996 Problem Pain in left shoulder M25.512 Active confirmed 24489540 Problem Personal history of other endocrine, nut ritional and metabolic disease Z86.39 Active confirmed 455437748 Problem Encounter for general adult medical exam ination with abnormal findings Z00.01 Active confirmed 152873426 Problem Mental health disorder F99 Active confirmed 33348327 Problem Hyperlipidemia, unspecified hyperlipidemia type E7 8.5 Active confirmed 64267307 Problem Chronic obstructive pulmonary disease, unspecified COPD ty pe J44.9 Active confirmed 54198815 Problem Obesity (BMI 30-39.9) E66.9 Active confirmed 769476354 ALLERGIES Allergen (clinical drug ingredient) Drug/Non Drug Allergy do cumented on EMR Reaction Allergy Type Onset Date Status penicillin G Penicillin G Sodium([facility] Code:[address]-57) HIVES D rug Allergy Active ENCOUNTERS from 1974 to 2021-03-10 Encounter Location Date Provider Diagnosis [address] [address] Feb, Luma Jimenez Encounter to establish care Z76.89 ; Mental health disorder F99 ; Gastroesophageal reflux disease without esophagitis K21.9 ; Chronic obstructive pulmonary disease, unspecified COPD type J44.9 ; Daytime somnolence R40.0 ; Hyperlipidemia, unspecified hyperlipidemia type E78.5 ; Personal history of other endocrine, nutritional and metabolic disease Z86.39 ; Screening for thyroid disorder Z13.29 ; Obesity (BMI 30-39.9) E66.9 ; BMI 31.0- 31.9,adult Z68.31 and Influenza vaccine needed Z23 IMMUNIZATIONS Vaccine Route Administration Date Status Fluarix [...] smoked? < 1 month REASON FOR REFERRAL from 1974 to 2021-03-10 Reason The patient is a 45-year-old male with a history of depression. [facility] Please evaluate and treat as needed. Thank you. Diagnosis 1 Mental health disorder (F99) Referral Organization [facility] Referring Provider First Name Luma Referring Provider Last Name Tony Referring Provider Specialty Family Medicine Referred Organization [facility] Referred Provider Lyla Snowden Referred Address [address] [facility],[address] Referred Provider Specialty Psychiatry Referral Priority Routine General Notes Ana Lawrence LPN 02/04 10:42:03 AM > Please do HC authorizationRupinder Rios LPN 03/08/2021 9:00:16 AM > Deyanira, do you need [employer] referral auth for this pt? VITAL SIGNS Height 67.5 in Feb, Weight 256.6 lbs Feb, BMI 39.59 kg/m2 Feb, Temperature 98.0 degrees Fahrenheit Feb, Heart Rate 68 /min Feb, Respiratory Rate 18 /min Feb, Oximetry 98 % Feb, Blood pressure systolic 126 mmHg Feb, Blood pressure diastolic 82 mmHg Feb, MEDICATIONS Medication SIG (Take, Route, Frequency, Duration) Notes Start Da te End Date Status Pantoprazole Sodium 40 MG 1 tablet Orally Once a day for 30 day( s) Feb, Active Zoloft 50 MG 1 tablet Orally Once a day Feb, Active PROCEDURES No Information RESULTS No Results REASON FOR VISIT EST CARE MEDICAL (GENERAL) HISTORY Type Description Date Medical [...] Notes Treatment Notes Treatm ent Clinical Notes Feb, Encounter to establish care (ICD-10 - Z76.89) - Follow up yearly for annual PE - Follow up as directed for routine condition monitoring - Follow up as needed for acute injury/illness/questions/concerns Health Maintenance: - Ensure diet high in fruits, vegetables, lean protein - Moderate alcohol, caffiene - Avoid tobacco - Obtain at least 120 mins of heart raising physical activity weekly - Wear seatbelt - Use CO and smoke detectors in home Screenings: - Start colonoscopy at age 49 unless otherwise directed - Obtain yearly fasting labs Feb, Mental health disorder (ICD-10 - F99) Patient did not complete screening tools. Started him on Zoloft today. Discussed a referral to [facility], pt accepts referral at this time. Encouraged to find family and friend support to talk to. Pt to report to the ED immediately with any thoughts of self-harm and/or harm to others. Pt v/u and agree. Recommended to follow up in 4 weeks with update on medication. Feb, Gastroesophageal reflux dise ase without esophagitis (ICD-10 - K21.9) Started him on medication May use Tums/Rolaids as needed for acute flares. Avoid trigger foods including spicy, acidic foods, peppermint and chocolate. Keep food diary to determine personal triggers. Do not eat or drink 2 hours before bed. Keep head of bed elevated. Weight loss will improve reflux. Received denial for esomeprazole. Sent pantoprazole. Feb, Chronic obstructive pulmonar y disease, unspecified COPD type (ICD- 10 - J44.9) Ordered PFT to assess status. Feb, Daytime somnolence (ICD-10 - R40.0) Epiworth Sleepiness Scale: Chance of Dosing: Sitting and readin Watching TV: 3 Sitting inactive in a public place (e.g. a theater or a meeting): 3 As a passenger in a car for an hour without a break: 3 Lying down to rest in the afternoon when circumstances permit:3 Sitting and talking to someone: 3 Sitting quietly after a lunch without alcohol: 3 In a car, while stopped for a few minutes in traffic:0 TOTAL SCORE: 21 Feb, Hyperlipidemia, unspecified hyperlipidemia type (ICD-10 - E78.5) Things that you can do at home to help control cholesterol: - Decrease unhealthy fats (carroll, butter, meat) - Increase activity - Lose weight Feb, Personal history of other en docrine, nutritional and metabolic disease (ICD-10 - Z86.39) Fasting labs have been ordered. 1. Please do not eat or drink anything (other than PLAIN water) for at least 8 hours (preferably 12 hours). Usually the easiest thing to do is do not eat after dinner and have labs drawn the next day prior to coffee and breakfast. 2. The lab opens at 7 am daily, you do not need an appointment. 3. The orders will be sent to the hospital electronically, you will not need to remember to bring them with you Feb, Screening for thyroid disorder (ICD-10 - Z13.29) Pending labs Feb, Obesity (BMI 30-39.9) (ICD-10 - E66.9) Recommend increasing low impact activity (walking, swimming, yoga), weight loss and diet including portion control, avoidance of high glycemic index foods like white bread, white pasta, white rice, white sugar and avoidance of fatty foods like butter, fried foods, steak/ground beef, full fat dairy products. Avoid sugary beverages like fruit juice, soda and alcohol. Consume lean protein including fish, chicken and healthy fats like avocado, nuts and olive oil. Check food labels and avoid foods high in salt especially prepackaged meals. Try to eat structured meals throughout the day, ensuring obtaining macronutrients at each meal (proteins, fats, carbohydrates). [place] [employer] recommends at least 120 minutes of aerobic activity per week. This can include any heart raising activity and does not need to be done all at once Feb, BMI 31.0-31.9,adult (ICD-10 - Z68.31) As above Feb, Influenza vaccine needed (ICD-10 - Z23) Nurse to administer influenza vaccine Feb, Other All questions an d concerns addressed, patient understanding and agreeable to plan. Patient encouraged to follow up at the clinic for any additional or new questions or concerns. Will get updated labs, CXR, PFT and sleep study. Restart medication for GERD and depression. Referral to [facility]. Will see back in 4 weeks to complete PE, review results and evaluate effectiveness of meds. Time spent includes face to face time with patient and review of any pertinent laboratory results, consult documentation/hospital notes and diagnostic imaging. Time spent: 20 mins Pretty Agrawal, scribing the following service on behalf of Luma Jimenez NP on 03/03/2021. PLAN OF TREATMENT Medication Medication Name Sig Start Date Stop Date Pantoprazole Sodium 40 MG 1 tablet Orally Once a day for 30 day( s) Feb, Zoloft 50 MG 1 tablet Orally Once a day Feb, Treatment Notes Assessment Notes Clinical Notes Encounter to establish care - Follow up yearly for shane ua PE- Follow up as directed for routine condition monitoring- Follow up as needed for acute injury/illness/questions/concernsHealth Maintenance:- Ensure diet high in fruit s, vegetables, lean protein- Moderate alcohol, caffiene- Avoid tobacco- Obtain at least 120 mins of heart raising physical activity weekly- Wear seatbelt- Use CO and smoke detectors in homeScreenings:- Start colonoscopy at age 49 unless otherwise directed- Obtain yearly fasting labs Mental health disorder Patient did not complete scr eening tools.Started him on Zoloft today.Discussed a referral to [facility], pt accepts referral at this time. Encouraged to find family and friend support to talk to.Pt to report to the ED immediately with any thoughts of self-harm and/or harm to others. Pt v/u and agree.Recommended to follow up in 4 weeks with update on medication. Gastroesophageal reflux disease without esophagitis St arted him on medicationMay use Tums/Rolaids as needed for acute flares.Avoid trigger foods including spicy, acidic foods, peppermint and chocolate. Keep food diary to determine personal triggers.Do not eat or drink 2 hours before bed.Keep head of bed elevated. Weight loss will improve reflux. Received denial for esomeprazole. Sent pantoprazole. Chronic obstructive pulmonary disease, unspecified ENGINE WATCHMAN D type Ordered PFT to assess status. Daytime somnolence Epiworth Sleepiness Scale:Ch ance of Dosing:Sitting and readinWatching TV: 3Sitting inactive in a public place (e.g. a theater or a meeting): 3As a passenger in a car for an hour without a break: 3Lying down to rest in the afternoon when circumstances permit:3Sitting and talking to someone: 3Sitting quietly after a lunch without alcohol: 3In a car, while stopped for a few minutes in traffic:0TOTAL SCORE: 21 Hyperlipidemia, unspecified hyperlipidemia type Things that you can do at home to help control cholesterol:- Decrease unhealthy fats (carroll, butter, meat)- Increase activity- Lose weight Personal history of other endocrine, nutritional and m etabolic disease Fasting labs have been ordered. 1. Please do not eat or drink anything (other than PLAIN water) for at least 8 hours (preferably 12 hours). Usually the easiest thing to do is do not eat after dinner and have labs drawn the next day prior to coffee and breakfast. 2. The lab opens at 7 am daily, you do not need an appointment. 3. The orders will be sent to the hospital electronically, you will not need to remember to bring them with you Screening for thyroid disorder Pending labs Obesity (BMI 30-39.9) Recommend increasing low imp act activity (walking, swimming, yoga), weight loss and diet including portion control, avoidance of high glycemic index foods like white bread, white pasta, white rice, white sugar and avoidance of fatty foods like butter, fried foods, steak/ground beef, full fat dairy products. Avoid sugary beverages like fruit juice, soda and alcohol. Consume lean protein including fish, chicken and healthy fats like avocado, nuts and olive oil. Check food labels and avoid foods high in salt especially prepackaged meals. Try to eat structured meals throughout the day, ensuring obtaining macronutrients at each meal (proteins, fats, carbohydrates). [place] [employer] recommends at least 120 minutes of aerobic activity per week. This can include any heart raising activity and does not need to be done all at once BMI 31.0-31.9,adult As above Influenza vaccine needed Nurse to admini ster influenza vaccine Pending Tests Test Name Order Date Pulmonary Function Test 2021-03-03 HGBA1C 2021-03-03 COMPLETE METABOLIC PROLFILE 2021-03-03 TSH 2021-03-03 LIPID PROFILE 2021-03-03 FREE T4 2021-03-03 CBC W/DIFF 2021-03-03 Home Sleep Study 2021-03-03 CHEST 2 VIEWS 2021-03-03 Referrals Referral Date Details The patient is a 45-year-old male with a history of depression. [facility] Please evaluate and treat as needed. Thank you., Lyla Snowden, [address] [place], [address], Next Appt Details 4 Weeks Reason:Meds/Labs/PFT/CXR/Sleep Thee arias Provider Name:Luma Jimenez, 1 10:40:00 AM, [address] [place], [address], Follow Up:4 WeeksMeds/Labs/PFT/CXR/Sleep Study Insurance Providers Payer Name Payer Address Payer Phone Insured Name Patient Relati onship to Insured Coverage Start Date Coverage End Date [employer] M[employer] - [employer] MEDICAID [address] [facility] [id number] ROSA MARIA CROCKER
--- OUTSIDE RECORDS SUMMARY | 2021-03-27 22:18 | CCD | Continuity of Care Document ---
Author Author Angeli HUNG MD Organization Unknown Address [address] [facility] [address] [place] [address] Phone [phone] Care Team Providers Care Estate Administrator Name Role Phone Pipo Villatoro MD AUTM Unavailable Cisco Urban MD AUTM [phone] Problems Description No Information Available Social History Type Date Description Comments Sex Unknown ETOH Use Rarely consumes alcohol Tobacco Use Start: Unknown Patient is a current smoker, smo kes every day Allergies and adverse reactions Active Allergies Criticality Reaction | Severity Comments Date Penicillin Unable to assess criticality 08/08/2017 Penicillins Unable to assess criticality Upset Stomach | Mild 08/07/2017 Medications Active Medications SIG Qnty Indications Ordering Provide r Date Gabapentin 100mg Capsules 1 by mouth three times a day 60caps M50.323 Tyler Hung MD 0 Medrol 4mg Tablets dose dima, take as directed on sheet 1tabs M50.323 Tyler Hung MD 020 Tylenol With Codeine #3 300-30mg T ablets 2 tabs every night as needed for pain 60tabs Tyler pérez MD 03/13/2018 Gabapentin 300mg Capsules 1 tab every 8 hours as needed 90caps Tyler Hung MD 8 Ibuprofen 600mg Tablets 1 tab by mouth three times a day 90tabs Tyler Hung MD 018 Zoloft 50mg Tablets 1 by mouth every day Unknown Omeprazole 10mg Capsules DR Unknown Immunizations Description No Information Available Vital Signs Date Vital Result Comment 07/07/2018 3:24pm Body Temperature 98.6 F Height 68 inches 5'8" Weight 250.00 lb BMI (Body Mass Index) 38.0 kg/m2 11/08/2017 10:12am Body Temperature 98.0 F Results Description No Information Available Procedures Description No Information Available Medical Devices Description No Information Available Encounters Description No Information Available Assessments Description No Information Available Plan of Treatment 11/10/2019 - Tyler Hung MD* M50.323 Other cervical disc degeneration at C6-C7 level* New Medication:* Gabapentin 100 mg - 1 by mouth three times a day * Medrol 4 mg - dose dima, take as directed on sheet * Follow up:* with [facility] in 3-4 weeks Functional Status Description No Information Available Mental Status Description No Information Available Referrals Description No Information Available
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
[2021-03-28] MEDS ORDERED: diazePAM 10MG/2ML SYRINGE (J3360 PER 5MG) IV ONE (05:55)
[2021-03-28] MEDS ORDERED: diazePAM 10MG/2ML SYRINGE (J3360 PER 5MG) IM ONE (06:15)
--- NOTE | 2021-03-28 07:53 | REPVR ---
PROCEDURE INFORMATION: Exam: XR Lumbosacral Spine Exam date and time: 03/28/2021 6:49 AM Age: 45 years old Clinical indication: Low back pain; Additional info: Back pain, fall TECHNIQUE: Imaging protocol: XR of the lumbosacral spine. Views: 4 or 5 views. COMPARISON: CT Spine, lumbar w/o contrast 08/10/2017 7:53 AM FINDINGS: Bones/joints: Vertebral body heights are intact. Alignment is maintained. The pedicles appear intact. No pars defect is identified. No acute fracture is identified. There is mild multilevel facet arthrosis and disc space narrowing. Soft tissues: Grossly unremarkable. IMPRESSION: 1. No acute fracture identified. CT would be more sensitive to fracture as clinically appropriate. 2. Mild degenerative disk disease which could be better evaluated by means of MRI as clinically indicated. Electronically signed by: García Valdes On 03/28/2021 07:52:35 AM
--- NOTE | 2021-03-28 07:55 | REPVR ---
PROCEDURE INFORMATION: Exam: XR Thoracic Spine Exam date and time: 03/28/2021 6:49 AM Age: 45 years old Clinical indication: Pain in thoracic spine; Additional info: Back pain, fall TECHNIQUE: Imaging protocol: XR of the thoracic spine. Views: 2 views. (3 images total) COMPARISON: CR Spine. Lumbosacral, complete 03/28/2021 6:17 AM FINDINGS: Bones/joints: Vertebral body heights are intact. Alignment is maintained. The upper thoracic vertebral bodies are not well visualized on the lateral view(s). The pedicles appear intact. No acute fracture is identified. There is mild multilevel facet arthrosis, disc space narrowing and marginal osteophyte formation. Soft tissues: Grossly unremarkable. IMPRESSION: 1. No acute fracture identified. CT would be more sensitive to fracture as clinically appropriate. 2. Mild degenerative disk disease which could be better evaluated by means of MRI as clinically indicated. Electronically signed by: García Valdes On 03/28/2021 07:54:53 AM
[2021-03-28] MEDS ORDERED: CYCL-707 PO (07:58)
[2021-03-28 08:07] VITALS: BP 138/87
--- NOTE | 2021-03-28 16:42 | ED PDOC ---
Post-Departure Follow-Up t-ls spine xray faxed to farzad regalado for fu Viraj Connelly MD Mar 28, 2021 16:42
== END 2021-03-28 08:31 | disposition home or self-care (01) ==
LOC: M ED 22:07
DX: M54.50 Low back pain, unspecified (principal); F33.9 Major depressive disorder, recurrent, unspecified; K21.9 Gastro-esophageal reflux disease without esophagitis; Z79.899 Other long term (current) drug therapy; Z88.0 Allergy status to penicillin; F17.210 Nicotine dependence, cigarettes, uncomplicated
CPT/HCPCS: 72070; 72110; 96372; 99284; J3360

== ENCOUNTER 2021-04-13 12:41 | Emergency (ER) | payer OTHER ==
[~2021-04-13] VITALS: Ht 175.3 cm; Wt 115.1 kg
[~2021-04-13 12:41] MED LIST changes: +CYCL-707 PO; +OMEP40CA5 PO
[2021-04-13] MEDS ORDERED: ACETAMINOPHEN 325 MG TAB PO ONE (14:05)
[2021-04-13] MEDS ORDERED: ALBUTEROL 90 MCG/ACT 8GM HFA INHALER INH ONE (14:25)
[2021-04-13] MEDS ORDERED: PROAAER10 INH ×2 (15:02→17:12)
[2021-04-13 15:39] VITALS: O2SAT 96
[2021-04-13] MEDS ORDERED: CASIRIVIMAB/IMDEVIMAB 1,200 MG in NS 250 ML IV ONE (16:40)
[2021-04-13 17:26] VITALS: BP 131/65
[2021-04-14] MEDS ORDERED: ALBUTEROL SULFATE 2.5 MG/0.5 ML INH NEB SOLN INH PRN (07:00)
[2021-04-14] MEDS ORDERED: diphenhydrAMINE 50MG/ML VIAL (J1200) IV PRN (07:00)
[2021-04-14] MEDS ORDERED: methylPREDNISolone 125MG 2ML VIAL IV PRN (07:00)
[2021-04-14] MEDS ORDERED: EPINEPHrine INJ 1 MG/ML 1ML AMP IM PRN (07:00)
[2021-04-14] MEDS ORDERED: ALBUTEROL 90 MCG/ACT 8GM HFA INHALER INH PRN (07:00)
[2021-04-14] MEDS ORDERED: NS 1,000 ML IV SCH (07:00)
[2021-04-14] MEDS ORDERED: CASIRIVIMAB (REGN10933) 600 MG, IMDEVIMAB (REGN10987) 600 MG in NS 250 ML IV ONE (07:00)
[2021-04-14] MEDS ORDERED: ACETAMINOPHEN TAB 650MG DOSE (2X325MG) PO PRN (07:00)
== END 2021-04-13 17:50 | disposition home or self-care (01) ==
LOC: M ED 12:41
DX: R05.9 Cough, unspecified (principal); U07.1 COVID-19; J44.9 Chronic obstructive pulmonary disease, unspecified; Z88.0 Allergy status to penicillin; Z79.899 Other long term (current) drug therapy

== ENCOUNTER 2021-04-17 17:31 | Outpatient (CLI) | payer OTHER ==
[~2021-04-17] VITALS: Ht 175.3 cm; Wt 113.0 kg
[2021-04-17 13:49] VITALS: BP_SYST 105; BP_SYST 112; BP_DIAS 62; BP_DIAS 64
[2021-04-17 14:19] VITALS: BP 105/62
[2021-04-17 14:39] VITALS: BP 115/61
[2021-04-17 15:49] VITALS: BP 109/67
[~2021-04-17 17:31] MED LIST changes: +ACETAMINOPHEN 325 MG TAB PO ONE; +ACETAMINOPHEN TAB 650MG DOSE (2X325MG) PO PRN; +ALBUTEROL 90 MCG/ACT 8GM HFA INHALER INH ONE; +ALBUTEROL 90 MCG/ACT 8GM HFA INHALER INH PRN; +ALBUTEROL SULFATE 2.5 MG/0.5 ML INH NEB SOLN INH PRN; +BAMLANIVIMAB 700 MG, ETESEVIMAB 1,400 MG in NS 250 ML IV ONE; +CASIRIVIMAB/IMDEVIMAB 1,200 MG in NS 250 ML IV ONE; +EPINEPHrine INJ 1 MG/ML 1ML AMP IM PRN; +NS 1,000 ML IV SCH; +diphenhydrAMINE 50MG/ML VIAL (J1200) IV PRN; +methylPREDNISolone 125MG 2ML VIAL IV PRN
== END 2021-04-17 17:32 | disposition home or self-care (01) ==
LOC: M OPCLI4 17:31
PROVIDERS: ATTEND Internal Medicine
DX: U07.1 COVID-19 (principal); Z88.0 Allergy status to penicillin

== ENCOUNTER 2021-09-12 00:07 | Emergency (ER) | payer OTHER ==
[~2021-09-12] VITALS: Ht 175.3 cm; Wt 106.5 kg
[~2021-09-12 00:07] MED LIST changes: -ACETAMINOPHEN 325 MG TAB PO ONE; -ACETAMINOPHEN TAB 650MG DOSE (2X325MG) PO PRN; -ALBUTEROL 90 MCG/ACT 8GM HFA INHALER INH ONE; -ALBUTEROL 90 MCG/ACT 8GM HFA INHALER INH PRN; -ALBUTEROL SULFATE 2.5 MG/0.5 ML INH NEB SOLN INH PRN; -BAMLANIVIMAB 700 MG, ETESEVIMAB 1,400 MG in NS 250 ML IV ONE; -CASIRIVIMAB/IMDEVIMAB 1,200 MG in NS 250 ML IV ONE; -EPINEPHrine INJ 1 MG/ML 1ML AMP IM PRN; -NS 1,000 ML IV SCH; -diphenhydrAMINE 50MG/ML VIAL (J1200) IV PRN; -methylPREDNISolone 125MG 2ML VIAL IV PRN
[2021-09-12] MEDS ORDERED: COMBIVENT RESPIMAT 100-20MCG INHALER 4GM INH ONE (03:10)
[2021-09-12] MEDS ORDERED: ACETAMINOPHEN TAB 650MG DOSE (2X325MG) PO ONE (04:25)
[2021-09-12] MEDS ORDERED: BENZ200C70 PO (05:08)
[2021-09-12] MEDS ORDERED: PROAAER10 INH (05:08)
[2021-09-12 05:19] VITALS: BP 125/67
== END 2021-09-12 05:39 | disposition home or self-care (01) ==
LOC: M ED 00:07
DX: R05.9 Cough, unspecified (principal); J02.9 Acute pharyngitis, unspecified; R52 Pain, unspecified; U07.1 COVID-19; F33.9 Major depressive disorder, recurrent, unspecified; K21.9 Gastro-esophageal reflux disease without esophagitis; Z79.899 Other long term (current) drug therapy; Z88.0 Allergy status to penicillin

== ENCOUNTER → 2023-10-14 | Outpatient (REF) ==
[~2023-10-14] MED LIST changes: +BENZ200C70 PO; -EFFE37.5 PO; +EFFE37.52 PO
== END ==
LOC: M PLAIMG 10:22
PROVIDERS: ATTEND Internal Medicine
DX: R52 Pain, unspecified (principal)

== ENCOUNTER → 2023-10-30 | Outpatient (REF) | payer OTHER, MEDICAID ==
[2023-10-30 17:35] LABS: ALBUMIN 4.2 G/DL (3.2-5.2); ALKALINE PHOSPHATASE 84 U/L (46-116); ALT/SGPT 25 U/L (7.0-40); AST/SGOT 18 U/L (<34); BILIRUBIN,TOTAL 0.6 MG/DL (0.3-1.2); BLOOD UREA NITROGEN 13 MG/DL (9-23); CARBON DIOXIDE LEVEL 28 MMOL/L (20-31); CHLORIDE LEVEL 107 MMOL/L (98-107); CHOLESTEROL LEVEL 258 MG/DL (<200); CREATININE FOR GFR 0.88 MG/DL (0.70-1.30); GLOMERULAR FILTRATION RATE > 60.0 (>60); GLUCOSE, FASTING 85 MG/DL (60-100); HDL CHOLESTEROL 35.3 MG/DL (>40); LDL CHOLESTEROL 193.3 MG/DL (<100); NON-HDL-C 222.7 MG/DL; POTASSIUM SERUM 4.3 MMOL/L (3.5-5.1); SODIUM LEVEL 140 MMOL/L (136-145); TRIGLYCERIDES LEVEL 147 MG/DL (<150)
[2023-10-30 17:37] LABS: FREE T4 1.06 NG/DL (0.89-1.76); THYROID STIMULATING HORMONE 0.285 uIU/ML (0.55-4.78)
== END ==
LOC: M LAB REF 16:14
PROVIDERS: ATTEND Family Medicine Addiction Medicine
DX: Z13.228 Encounter for screening for other metabolic disorders (principal)

== ENCOUNTER → 2023-11-19 | Outpatient (REF) | payer OTHER, MEDICAID ==
[2023-11-19 14:42] LABS: BASO % 0.6 % (0.0-1.0); EOS # 0.2 10^3/uL (0.0-0.5); EOS % 2.9 % (0.0-3.0); HEMATOCRIT 40.5 % (42.0-52.0); HEMOGLOBIN 13.3 g/dl (13.5-17.5); LYMPH # 2.2 10^3/uL (1.5-5.0); LYMPH % 35.4 % (24.0-44.0); MEAN CORPUSCULAR HEMOGLOBIN 30.7 pg (27.0-33.0); MEAN CORPUSCULAR HGB CONC 32.8 g/dl (32.0-36.5); MEAN CORPUSCULAR VOLUME 93.5 fl (80.0-96.0); MONO # 0.3 10^3/uL (0.0-0.8); MONO % 5.4 % (2.0-8.0); NEUTROPHILS # 3.4 10^3/uL (1.5-8.5); NEUTROPHILS % 55.2 % (36.0-66.0); PLATELET COUNT, AUTOMATED 256 10^3/uL (150-450); RED BLOOD COUNT 4.33 10^6/uL (4.30-6.10); WHITE BLOOD COUNT 6.2 10^3/uL (4.0-10.0)
[2023-11-19 14:45] LABS: CHOLESTEROL RISK RATIO 7.68 (<5); HDL CHOLESTEROL 38.5 MG/DL (>40); LDL CHOLESTEROL 211.3 MG/DL (<100); MAGNESIUM LEVEL 1.8 MG/DL (1.8-2.4); NON-HDL-C 257.5 MG/DL
[2023-11-19 14:48] LABS: THYROID STIMULATING HORMONE 0.6 uIU/ML (0.55-4.78); TOTAL 25(OH) VITAMIN D 30.8 NG/ML (20.0-100.0)
[2023-11-19 15:09] LABS: HEMOGLOBIN A1c 5.2 % (4.0-6.0)
== END ==
LOC: M LAB REF 13:48
PROVIDERS: ATTEND Nurse Practitioner Family
DX: R89.1 Abnormal level of hormones in specimens from other organs, systems and tissues (principal); E78.5 Hyperlipidemia, unspecified; E55.9 Vitamin D deficiency, unspecified; E66.9 Obesity, unspecified

== ENCOUNTER → 2024-02-26 | Outpatient (REF) | payer OTHER, MEDICAID ==
[~2024-02-26] MED LIST changes: +GABA-1172 PO; -GABA-282 PO
[2024-02-26 13:40] LABS: CHOLESTEROL RISK RATIO 7.27 (<5); HDL CHOLESTEROL 41.9 MG/DL (>40); LDL CHOLESTEROL 207.5 MG/DL (<100); NON-HDL-C 263.1 MG/DL
== END ==
LOC: M LAB REF 12:29
PROVIDERS: ATTEND Nurse Practitioner Family
DX: E78.5 Hyperlipidemia, unspecified (principal)